=== PATIENT | female | born 1955 | race Caucasian/White ===

== ENCOUNTER 2017-04-09 06:33 | Outpatient (CLI) | payer MEDICARE ==
[~2017-04-09] VITALS: Ht 168.9 cm; Wt 89.8 kg
[2017-04-09] VITALS (10 sets, daily range): BP systolic 90–115; BP diastolic 56–74
[~2017-04-09 06:33] MED LIST: ALPR0.5T6 PO; AMIT150T PO; AMIT50TA PO; ATEN50TA PO; ATORVASTATIN CA80 MG PO; CLOP75TA PO; FLUT16SP NS; LEVO175T5 PO; MELA3TAB2 PO; OMEP20CA9 PO; OMEP40CA5 PO; OXYC1TAB7 PO; PRED-220 PO; VENL150C PO; ZOLP10TA PO
[2017-04-09 07:25] LABS: BASO # 0.1 x10^3/uL (0.0-0.2); BASO % 1 % (0-3); EOS % 1 % (0-3); HEMATOCRIT 37.5 % (36.0-47.0); HEMOGLOBIN 12.2 g/dL (12.0-15.5); LYMPH # 3.3 x10^3/uL (1.0-4.8); LYMPH % 27 % (24-48); MEAN CORPUSCULAR HEMOGLOBIN 31 pg (25-35); MEAN CORPUSCULAR HGB CONC 32 g/dL (31-37); MEAN CORPUSCULAR VOLUME 96 fL (79-100); MONO % 10 % (0-9); NEUT % 61 % (31-73); PLATELET COUNT 340 x10^3/uL (140-400); RED BLOOD COUNT 3.92 x10^6/uL (3.50-5.40); RED CELL DISTRIBUTION WIDTH 14.3 % (11.5-14.5); WHITE BLOOD COUNT 12.2 x10^3/uL (4.0-11.0)
[2017-04-09 07:34] LABS: PROTHROMBIN TIME PATIENT 12.1 SEC (11.7-14.0)
[2017-04-09 07:36] LABS: CALCIUM 8.8 mg/dL (8.5-10.1); CREATININE 0.9 mg/dL (0.6-1.0); GFR 63.2; POTASSIUM 3.6 mmol/L (3.5-5.1)
[2017-04-09] MEDS ORDERED: IOHEXOL 300 MG/ML 50 ML VIAL. ONE (08:08)
[2017-04-09] MEDS ORDERED: HEPARIN for ARTERIAL LINE 1,500 ML ONE (08:09)
[2017-04-09] MEDS ORDERED: LIDOCAINE 1% / SOD BICARB 8.4% 20 ML VIAL. IJ ONE ×2 (08:09→09:00)
[2017-04-09] MEDS ORDERED: IOHEXOL 300 MG/ML 100ML VIAL. ONE (08:09)
[2017-04-09] MEDS ORDERED: MIDAZOLAM HCL/PF 5 MG/5 ML VIAL. ONE (08:44)
[2017-04-09] MEDS ORDERED: fentaNYL PF VIAL 250 MCG/5 ML VIAL ONE (08:44)
[2017-04-09] MEDS ORDERED: fentaNYL PF VIAL 250 MCG/5 ML VIAL IV ONE (09:00)
[2017-04-09] MEDS ORDERED: IOHEXOL 300 MG/ML 100ML VIAL. IART ONE (09:00)
[2017-04-09] MEDS ORDERED: MIDAZOLAM HCL/PF 5 MG/5 ML VIAL. IV ONE (09:00)
[2017-04-09] MEDS ORDERED: HEPARIN for IV BOLUS 10,000 UNIT/10 ML VIAL. ONE (09:06)
[2017-04-09] MEDS ORDERED: CONTRAST GIVEN MC PRN (09:15)
[2017-04-09] MEDS ORDERED: HEPARIN for IV BOLUS 10,000 UNIT/10 ML VIAL. IV ONE (09:15)
[2017-04-09] MEDS ORDERED: IV NORMAL SALINE 1000ML BAG 1,000 ML IV ONE (10:00)
--- NOTE | 2017-04-09 10:28 | PDOC ---
MODERATE SEDATION ASSESSMENT RISKS/ALTERNATIVES Risks/Alternatives Risks and alternatives of this type of sedation and procedure discussed with: RISK/ALTERNATIVES: Patient H & P ON CHART H & P H & P on chart and reviewed for co-morbid conditions and appropriate labs. H&P ON CHART: Yes STATUS PREG STATUS ASSESSED: N/A MEDS/ALLERGIES REVIEWED Meds/Allergies Reviewed Medications and Allergies including time and route of recently administered narcotics and sedatives. MEDS/ALLERGIES REVIEWED: Yes ASA RATING ASA RATING: II AIRWAY ASSESSMENT Airway Assessment Airway patency, oral function limitations, presence of caps, crowns, dentures, partials, and ability to extend neck assessed. AIRWAY ASSESSMENT: Yes MALLAMPATI SCORE MALLAMPATI SCORE: II PRE-SEDATION ASSESSMENT PRE-SEDATION ASSESSMENT: Yes GIDEON CONTE MD Apr 09, 2017 10:28
--- NOTE | 2017-04-09 10:42 | PDOC1 ---
History and Physical Date of Procedure Date of Admission 04/09/17 Procedure Procedure Selective bilateral cervicocephalic angio +/- PROGRAMMING EQUIPMENT OPERATOR, as indicated. Indication Indication 61 YO female with known cerebrovascular disease, s/p brachiocephalic artery stenting, left subclavian artery stenting, left subclavian -CCA bypass, and left CEA. She has had several prior PTAs for recurrent stenosis. She represents with syncope, weakness, and diminished radial pulses, c/w recurrent restenosis. Past Medical History Past Medical History See Nursing Pre procedure PMH Past Surgical History Past Surgical History See Nursing Pre procedure PSH. Current Medications Current Medications Current Medications Iohexol (Omnipaque 300 Mg/ml) 50 ml STK-MED ONCE .ROUTE ; Start 04/09/17 at 08: 08; Stop 04/09/17 at 08:09; Status DC Iohexol (Omnipaque 300 Mg/ml) 100 ml STK-MED ONCE .ROUTE ; Start 04/09/17 at 08: 09; Stop 04/09/17 at 08:10; Status DC Lidocaine/Sodium Bicarbonate (Buffered Lidocaine 1%) 20 ml STK-MED ONCE IJ ; Start 04/09/17 at 08:09; Stop 04/09/17 at 08:10; Status DC Heparin Sodium/ Sodium Chloride 1,500 ml @ As Directed STK-MED ONCE .ROUTE ; Start 04/09/17 at 08:09; Stop 04/09/17 at 08:10; Status DC Midazolam HCl (Versed) 5 mg STK-MED ONCE .ROUTE ; Start 04/09/17 at 08:44; Stop 04/09/17 at 08:45; Status DC Fentanyl Citrate (Fentanyl 5ml Vial) 250 mcg STK-MED ONCE .ROUTE ; Start at 08:44; Stop 04/09/17 at 08:45; Status DC Heparin Sodium/ Sodium Chloride 1,000 unit 1X ONCE IART Last administered on 09:54; Start 04/09/17 at 09:00; Stop 04/09/17 at 09:04; Status DC Lidocaine/Sodium Bicarbonate (Buffered Lidocaine 1%) 20 ml 1X ONCE IJ Last administered on 04/09/17 09:55; Start 04/09/17 at 09:00; Stop 04/09/17 at 09:04 ; Status DC Midazolam HCl (Versed) 5 mg 1X ONCE IV Last administered on 04/09/17 09:55; Start 04/09/17 at 09:00; Stop 04/09/17 at 09:04; Status DC Fentanyl Citrate (Fentanyl 5ml Vial) 250 mcg 1X ONCE IV Last administered on 09:57; Start 04/09/17 at 09:00; Stop 04/09/17 at 09:04; Status DC Iohexol (Omnipaque 300 Mg/ml) 100 ml 1X ONCE IART Last administered on 09:54; Start 04/09/17 at 09:00; Stop 04/09/17 at 09:04; Status DC Info (Do NOT chart on this entry -- for MONITORING) 1 each PRN DAILY PRN MC SEE COMMENTS; Start 04/09/17 at 09:15; Stop 04/11/17 at 09:14 Heparin Sodium (Porcine) (Heparin Sodium) 10,000 unit STK-MED ONCE .ROUTE ; Start 04/09/17 at 09:06; Stop 04/09/17 at 09:07; Status DC Heparin Sodium (Porcine) (Heparin Sodium) 10,000 unit 1X ONCE IV Last administered on 04/09/17 09:56; Start 04/09/17 at 09:15; Stop 04/09/17 at 09:22 ; Status DC Sodium Chloride 1,000 ml @ 100 mls/hr 1X ONCE IV Last administered on 08:45; Start 04/09/17 at 10:00; Stop 04/09/17 at 19:59 Active Scripts Active Reported Amitriptyline Hcl 150 Mg Tablet 250 Mg PO DAILY Ambien (Zolpidem Tartrate) 10 Mg Tablet 1 Tab PO QHS PRN Atorvastatin Calcium 80 Mg Tablet 1 Tab PO HS Omeprazole 20 Mg Capsule.dr 2 Cap PO DAILY Atenolol 50 Mg Tablet 1 Tab PO DAILY Oxycodone-Acetaminophen 5-325 (Oxycodone Hcl/Acetaminophen) 1 Each Tablet 2 Each PO PRN Q4HRS PRN Fluticasone Propionate Nasal [place] (Fluticasone Propionate) 16 Gm [place].susp 2 [place] NS PRN PRN Alprazolam 0.5 Mg Tablet 1 Tab PO TID PRN Clopidogrel (Clopidogrel Bisulfate) 75 Mg Tablet 1 Tab PO DAILY Prednisone 10 Mg Tablet 10 Mg PO PRN Effexor Xr (Venlafaxine Hcl) 150 Mg Cap.er.24h 1 Cap PO DAILY Levothyroxine Sodium 175 Mcg Tablet 1 Tab PO DAILY Allergies Allergies: Coded Allergies: cortisone (Verified Allergy, Intermediate, 10/14/16) sumatriptan (Verified Allergy, Intermediate, 10/14/16) Physical Exam Vital Signs Vital Signs Date Time Temp Pulse Resp B/P (MAP) Pulse Ox O2 Delivery O2 Flow Rate FiO2 04/09/17 10:15 84 16 93 Room Air 04/09/17 09:57 3.0 04/09/17 07:31 98.2 110/74 (86) 98.2 Lungs: Clear to auscultation Heart: Regular rate Psych/Mental Status: Mental status NL Other Diminished radial artery pulses bilaterally. Diagnostic Data/Imaging Images Several prior PMC cervicocephalic angios with intervention reviewed, latest from 09/14/16. Assessment Assessment 61 YO female smoker, with known cerebrovascular disease. She has recurrent syncope, weakness, and diminished radial pulses c/w recurrent cervicocephalic stenoses. Problems: Plan Plan Selective cervicocephalic angio, +/- intervention, as indicated. GIDEON CONTE MD Apr 09, 2017 10:42
--- NOTE | 2017-04-09 10:50 | PDOC ---
Exam Supervisory Examiner Supervisory Examiner Gianni Histology Tech Histology Tech Jailyn Lopez Pre-Procedure Diagnosis Pre-Procedure Diagnosis 61 YO female smoker, with weakness, syncope, and diminished radial pulses, c/w in-stent restenosis within brachiocephalic and left subclavian artery stents. Post-Procedure Diagnosis Post-Procedure Diagnosis Same. Cervicocephalic angio confirmed >50 % recurrent stenosis within brachiocephalic artery stent, within left subclavian artery stent, and within left subclavian- CCA bypass. Left carotid bifurcation remains widely patent, s/p CEA. Moderate, approximately 50 % stenosis at right carotid bifurcation. Procedure Performed Procedure Performed Selective cervicocephalic angio. OUTSIDE MEDICAL SALES REPRESENTATIVE recurrent stenoses within brachiocephalic artery stent, left subclavian artery stent, and within left subclavian-CCA bypass. Type of Anesthesia Type of Anesthesia Local + Mod sedation. Estimated Blood Loss EBL: 50 cc Condition of Patient Condition of Patient Stable. No apparent complication. Disposition Disposition From IR to [facility] for recovery, with frequent neuro checks. Will need ride home or will need to stay overnight. Continue daily PO Plavix. Stop smoking. F/u with Dr Weiss. Full report to follow. GIDEON CONTE MD Apr 09, 2017 10:50
[2017-04-09] MEDS ORDERED: oxyCODONE/APAP 5/325 1 TAB TABLET PO ONE (11:45)
--- NOTE | 2017-04-10 12:15 | RAD ---
Selective bilateral cervicocephalic arteriogram HEAD STOCK OPERATOR proximal brachiocephalic artery stent HEAD STOCK OPERATOR left subclavian-carotid bypass graft HEAD STOCK OPERATOR proximal left subclavian artery stent Indication: 61-year-old female with known cerebrovascular disease, status post prior brachiocephalic artery and left subclavian artery stenting, left subclavian-common carotid bypass graft, and left carotid endarterectomy. She has known right carotid bifurcation disease, followed by ultrasound. She now represents with syncope, weakness, and diminished bilateral radial pulses, suggesting recurrent brachiocephalic and proximal left subclavian artery in-stent restenosis. Artery selected/injected: Brachiocephalic artery; Right brachial artery; Right common carotid artery; Left subclavian artery; Left vertebral artery; Left subclavian-carotid bypass graft; Left common carotid artery. Fluoroscopy time: 21.8 minutes Kerma-area Product: 291 Gycm2 Contrast material: 103 cc Omnipaque 300 Anesthesia: 69 minutes moderate sedation was provided utilizing a total of 4 mg Versed and 200 mcg fentanyl, IV. The patient was appropriately monitored by a qualified independent observer throughout the time of moderate sedation. Consent: The procedure was explained in its entirety to the patient and/or the patient's designated advertising sales representative by a member of the treatment team. This included a discussion of risks and benefits and commonly accepted alternatives to the procedure, as well as expected consequences of no treatment at all. Discussion of risks included, but was not limited to, those that are most frequent and those that are rare, but possibly severe or life-threatening, as well as the possibility of unforeseen complications. Sterility: All elements of maximal sterile barrier technique, hand hygiene, skin preparation, and, if ultrasound was used, sterile ultrasound technique were followed. Procedure: Informed consent was obtained from the patient. She was placed supine on the angiography table. Preliminary ultrasound examination of right groin revealed wide patency of right common femoral artery, which was documented with a single hard copy ultrasound image. Right groin was then prepped and draped in the usual sterile fashion, utilizing all elements of maximal sterile barrier technique, as described above. Moderate sedation was provided with IV Versed and fentanyl. Using aseptic technique, local anesthesia, direct ultrasound guidance, and the micropuncture system, a 7 Iraqi 55 cm right common femoral artery sheath was successfully introduced, and was advanced into distal aortic arch, utilizing fluoroscopic guidance. Right side: A 5 Iraqi H1 catheter was inserted through the 7 Iraqi sheath, and was carefully advanced across the previously stented brachiocephalic artery into mid right common carotid artery. Omnipaque 300 was hand injected and right carotid cervical and intracranial DSA images were obtained. Those images revealed widely patent right common carotid artery, widely patent right external carotid artery, and essentially unchanged, less than 50% stenosis at proximal right internal carotid artery. Cervical right ICA is otherwise unremarkable, as are petrous, cavernous, and supraclinoid segments. There was prompt and satisfactory contrast opacification of right middle and bilateral anterior cerebral arteries, via patent anterior communicating artery. There was no evidence of intracranial major vessel occlusion, aneurysm, or vascular malformation. The H1 catheter was then withdrawn into brachiocephalic artery, and was then carefully advanced over a Glidewire across right subclavian artery and axillary artery into proximal right brachial artery. Omnipaque 300 was then injected through the H1 catheter, confirming satisfactory intraluminal position within proximal brachial artery. The H1 catheter was then removed over a long Terumo advantage guidewire, positioned with its tip within mid right brachial artery. A 6 Iraqi 100 cm long guiding catheter was then advanced through the 7 Iraqi sheath over the advantage wire and was positioned at origin of brachiocephalic artery from aortic arch. Omnipaque 300 was injected through the guide catheter, confirming at least 50% in-stent restenosis within the proximal brachiocephalic artery stent. IV bolus injection of 5000 units heparin was then performed. The guiding catheter was then exchanged over the advantage guidewire for a 10 mm x 20 mm conquest HEAD STOCK OPERATOR balloon, which was carefully positioned across the brachiocephalic artery stent, and was slowly inflated to a peak pressure of 20 bev. The conquest HEAD STOCK OPERATOR balloon was then re-exchanged over the advantage wire for the 6 Iraqi guiding catheter, which was again positioned near brachiocephalic artery origin. Omnipaque 300 was again injected and post angioplasty DSA images were obtained, which revealed essentially complete resolution of the in-stent restenosis, without complicating dissection or thrombosis. Left side: The 5 Iraqi H1 catheter was then reintroduced through the 7 Iraqi sheath. This catheter was carefully advanced over a Glidewire through the previously stented proximal left subclavian artery into mid left vertebral artery, utilizing fluoroscopic guidance. Omnipaque 300 was injected and intracranial DSA images were obtained in AP and lateral projections. Left vertebral artery and basilar artery are widely patent, with normal antegrade flow. Posterior cerebral arteries are well opacified, bilaterally. No aneurysm or vascular malformation was seen. The H1 catheter was then withdrawn into left subclavian artery, and was then carefully advanced over the Glidewire into and through the patient's left subclavian-common carotid bypass graft into left common carotid artery. Omnipaque 300 was again injected and carotid cervical and intracranial DSA images were obtained. Postoperative distal left common carotid artery and left carotid bifurcation appear widely patent. Petrous, cavernous, and supraclinoid left ICA are unremarkable. There is prompt contrast opacification of left middle and anterior cerebral arteries, without major vessel occlusion and without aneurysm or vascular malformation. The H1 catheter was then withdrawn into origin of the left subclavian-common carotid bypass graft. Omnipaque 300 was hand injected, confirming moderate restenosis within proximal segment of the bypass graft. The H1 catheter was then carefully reintroduced into left common carotid artery over the Glidewire, and was then removed over an Amplatz wire. A 6 mm x 40 mm conquest HEAD STOCK OPERATOR balloon was then advanced through the 7 Iraqi sheath over the Amplatz wire and was utilized to perform balloon dilatation of the narrowed proximal bypass graft segment to a peak pressure of 15 bev. Post angioplasty DSA images revealed significant angiographic improvement, without complicating dissection or thrombosis. The 5 Iraqi H1 catheter was then reintroduced through the 7 Iraqi sheath, and was utilized to carefully advanced the Amplatz wire into mid left axillary artery. The H1 catheter was then exchanged for the 6 Iraqi guiding catheter, which was advanced over the Amplatz wire to lie adjacent to left subclavian artery origin. Omnipaque 300 was injected, confirming at least 50% residual stenosis within the previously stented proximal left subclavian artery. The guiding catheter was then exchanged over the Amplatz wire for an 8 mm x 40 mm conquest HEAD STOCK OPERATOR balloon, which was carefully positioned across the proximal left subclavian artery stent, and was slowly inflated to a peak pressure of 24 bev. The HEAD STOCK OPERATOR balloon was then deflated and was re-exchanged for the 6 Iraqi guiding catheter, which was again advanced over the Amplatz wire to lie adjacent to left subclavian artery origin. Omnipaque 300 was injected and completion DSA images were obtained, which revealed only minimal residual stenosis within the proximal left subclavian artery stent. Those images also again confirmed widely patency of the angioplastied left subclavian-carotid bypass graft. Guidewire, guiding catheter, and right groin sheath were then removed and hemostasis was achieved utilizing the Mynx closure system. Patient tolerated the procedure well without apparent complication. Impression: 1. Successful, uneventful bilateral multivessel selective cervicocephalic arteriogram, as described. 2. Successful, uneventful balloon angioplasty of proximal brachiocephalic artery stent, proximal left subclavian artery stent, and left subclavian-carotid bypass graft, as described.
== END 2017-04-09 13:15 | disposition home or self-care (01) ==
LOC: INTRAD 06:33
PROVIDERS: ATTEND Radiology Vascular & Interventional Radiology
DX: I25.10 Atherosclerotic heart disease of native coronary artery without angina pectoris (principal); I73.9 Peripheral vascular disease, unspecified; Z86.69 Personal history of other diseases of the nervous system and sense organs; E78.00 Pure hypercholesterolemia, unspecified; J44.9 Chronic obstructive pulmonary disease, unspecified; M19.90 Unspecified osteoarthritis, unspecified site; E03.9 Hypothyroidism, unspecified; Z72.0 Tobacco use; D64.9 Anemia, unspecified; Z87.39 Personal history of other diseases of the musculoskeletal system and connective tissue; Z90.710 Acquired absence of both cervix and uterus; Z88.8 Allergy status to other drugs, medicaments and biological substances; Z86.39 Personal history of other endocrine, nutritional and metabolic disease
CPT/HCPCS: 36223; 36226; 36415; 37246; 37247; 76937; 80048; 85027; 85610; 99152; 99153; A4215; C1713; C1758; C1760; C1769; C1892; C1894; J2250; J3010; J7030; Q9967; G0269

== ENCOUNTER → 2018-07-11 | Outpatient (CLI) | payer MEDICARE ==
[2017-04-09 13:00] VITALS: BP 96/71
--- NOTE | 2018-07-12 02:39 | PAIN ---
DATE OF SERVICE: 07/11/2018 DIAGNOSES: Lumbar spinal stenosis, lumbar degenerative disk disease with lumbar radiculopathy, and post-lumbar laminectomy syndrome. HISTORY OF PRESENT ILLNESS: The patient is a 62-year-old female, returns today, last seen on 12/19/2015, had lumbar epidural steroid injection with very good results about 80% improvement until the last 1-2 months. The patient reports she had been doing some increased work at home, moving some things around her home, which has caused her back pain to increase across the low back and bilateral lower extremities, mostly the posterior gluteus, posterior thighs, but across the low back most significantly. The patient reports it as a 9 on a scale of 10 at its worst, average and at its least, it is a 9 on a scale of 10 today. The patient reports it is aching, burning, tingling, stabbing, sharp, and becoming more constant. No loss of motor function. No new bowel or bladder incontinence or other complaints. The patient reports that it allows her to sleep at night. She is not having any difficulty with sleeping. It is worse with standing, walking, changing positions, standing from sitting position and being on her feet, especially with bending repetitively and lifting items. PHYSICAL EXAMINATION: VITAL SIGNS: The patient's blood pressure is 142/93, pulse 107, respirations are 18, temperature 98.0 degrees Fahrenheit, height is 5 feet 6 inches, weight is 245 pounds. GENERAL: The patient is awake, alert, oriented, appropriate, very pleasant demeanor. HEENT: Head is normocephalic, atraumatic. Extraocular movements are intact, symmetrical. Oral cavity: Mucous membranes are moist and pink. Dentition is intact. Swallow reflex symmetrical. NECK: Shows anterior throat supple without palpable lymphadenopathy noted. CHEST: Shows normal on inspection. Breath sounds clear to auscultation bilaterally. HEART: Shows S1, S2 clear. No murmurs auscultated. ABDOMEN: Soft, nontender, nondistended. No palpable organomegaly is noted. No rebound or guarding demonstrated. BACK: Shows spine grossly in the midline. Normal appearing thoracic kyphosis, some minor flattening of lumbar lordotic curvature with well-healed surgical scar noted in the lumbar distribution. Lumbar paraspinous muscle shows symmetrical on inspection. On palpation, it shows some moderate tenderness diffusely bilaterally, but only in the low lumbar distribution without radiation. The patient has good rotational motion of lumbar spine, both laterally, as well as extension and flexion without difficulty. EXTREMITIES: Lower extremities show deep tendon reflexes 1+ in the patellar and tendo-calcaneus tendons. Motor exam is strong with 5/5 dorsiflexion, extension, quadriceps and hamstring flexion, symmetrical. Peripheral pulses are 1+, posterior tibia. No peripheral edema is noted bilaterally. ASSESSMENT: Options were discussed with the patient. The patient's old chart was reviewed. Her current medication regimen updated. Current review of systems updated today as well. We will check with her prescribing physician for holding her Plavix for 7 days prior to lumbar epidural steroid injection. If deemed safe and appropriate, we will have the patient hold this and return for lumbar epidural steroid injection at that time. At this time, the patient will continue taking medication until we hear back from her prescribing physician and we will go from there. The patient also given the Medrol Dosepak with instructions, side effects to be aware of discussed and we will try this in the meantime to see if this may afford some decrease in pain in the meantime. YU RODRIGUEZ MD DR: JOSEFINA/jason JOB#: [id number] / [id number]
== END | disposition home or self-care (01) ==
LOC: PNCL 13:30
PROVIDERS: ATTEND Anesthesiology
DX: M51.16 Intervertebral disc disorders with radiculopathy, lumbar region (principal); M48.061 Spinal stenosis, lumbar region without neurogenic claudication; M17.0 Bilateral primary osteoarthritis of knee; I10 Essential (primary) hypertension; E78.5 Hyperlipidemia, unspecified; E78.00 Pure hypercholesterolemia, unspecified; E03.9 Hypothyroidism, unspecified; J44.9 Chronic obstructive pulmonary disease, unspecified; G43.909 Migraine, unspecified, not intractable, without status migrainosus; I25.10 Atherosclerotic heart disease of native coronary artery without angina pectoris; K21.9 Gastro-esophageal reflux disease without esophagitis; Z86.39 Personal history of other endocrine, nutritional and metabolic disease; Z87.39 Personal history of other diseases of the musculoskeletal system and connective tissue; Z86.69 Personal history of other diseases of the nervous system and sense organs; Z90.721 Acquired absence of ovaries, unilateral; Z90.710 Acquired absence of both cervix and uterus; Z82.49 Family history of ischemic heart disease and other diseases of the circulatory system
CPT/HCPCS: G0463

== ENCOUNTER → 2018-08-15 | Outpatient (CLI) | payer MEDICARE ==
[2017-04-09 13:00] VITALS: BP 96/71
[~2018-08-15] MED LIST changes: +IOHEXOL 180 MG/ML 10 ML VIAL. ONE; +LIDOCAINE 2% PF Vial for OR 5 ML VIAL. ONE
--- NOTE | 2018-08-16 03:33 | PAIN ---
DATE OF SERVICE: 08/15/2018 PROGRESS NOTE FOR PAIN CLINIC DIAGNOSES: Bilateral knee joint pain with bilateral osteoarthritis of the bilateral knee joints. HISTORY OF PRESENT ILLNESS: The patient is a 63-year-old female who returns for followup status post evaluation and preauthorization or ordering Synvisc injections for bilateral knee joints. The patient reports still significant pain with walking, standing, especially climbing stairs, putting weight on one knee or the other, one leg at a time with significant pain mostly in the medial compartment, a little worse on the left than the right, but present bilaterally. The patient reports it is constant, unbearable, aching, sharp, shooting at times in the left knee greater than the right, also some back pain as well. The patient reports as a 9 on a scale of 10 at its worst, average and least and is a 9 today. The patient reports it is becoming more constant, more unbearable with weightbearing, better with sitting and lying down, does awaken her from sleep though if she lies on her side mostly on the left or has her knee bent too far. The patient reports no new motor or sensory deficits, no new bowel or bladder incontinence or other complaints. PHYSICAL EXAMINATION: VITAL SIGNS: The patient's blood pressure is 137/84, pulse 74, respirations 16, temperature is 97.8 degrees Fahrenheit, 5 feet 6 inches and weight is 246 pounds. GENERAL: The patient is awake, alert, oriented, appropriate, very pleasant demeanor. HEENT: Head shows normocephalic and atraumatic. Extraocular movements are intact and symmetrical. Oral cavity: Mucous membranes are moist and pink. Dentition is intact. NECK: Shows anterior throat is supple without palpable lymphadenopathy noted. Swallow reflex is symmetrical. CHEST: Shows normal on inspection. Breath sounds are clear to auscultation bilaterally. HEART: Shows S1 and S2 clear. No murmurs are auscultated. ABDOMEN: Obese, soft, nontender and nondistended. No palpable organomegaly is noted. No rebound or guarding demonstrated. BACK: The patient's back shows spine grossly in the midline, slight exaggeration of thoracic kyphosis and some mild flattening of lumbar lordotic curvature. EXTREMITIES: The patient's lower extremities show deep tendon reflexes 1+ in the patellar and tendo-calcaneus tendons. Motor exam is strong with 5/5 dorsiflexion and extension bilaterally. The patient's knee shows good hinge motion with smooth gliding of the joint on the right. Left shows some mild ratcheting with full extension and flexion, but only with very minimal pain reported with this maneuver. Peripheral pulses are 1+ posterior tibia. No peripheral edema is noted bilaterally. Options were discussed with the patient. The patient's old chart was reviewed as was her current medication regimen updated. Current review of systems updated today as well. We will proceed with bilateral Synvisc injections of the knee joints under fluoroscopic guidance. Risks were again discussed including, but not limited to bleeding, infection, possibility of intravascular injection sequelae, spread of local anesthetic and numbness as well as exposure to fluoroscopy and poor results regarding pain control. The patient understands and wished to proceed. The patient will return to the clinic in approximately 2 weeks for followup, was counseled as to return appointment, activity level and side effects to be aware of. DIAGNOSIS: Bilateral primary osteoarthritis, bilateral knee joints with bilateral knee joint pain. PROCEDURE: Bilateral knee joint Synvisc injections using C-arm fluoroscopic guidance under sterile prep and drape using local anesthetic. MEDICATIONS INJECTED: A total of 2 mL per knee, 4 mL total of Synvisc as well as 3 mL total of Isovue for contrast. CONDITION AT DISCHARGE: Stable. The patient tolerated the procedure well and had no complications. YU RODRIGUEZ MD DR: JOSEFINA/jason JOB#: [id number] / [id number]
== END | disposition home or self-care (01) ==
LOC: PNCL 11:36
PROVIDERS: ATTEND Anesthesiology
DX: M17.0 Bilateral primary osteoarthritis of knee (principal); Z88.6 Allergy status to analgesic agent; Z88.8 Allergy status to other drugs, medicaments and biological substances
CPT/HCPCS: 20610; 77002; J2001; Q9965

== ENCOUNTER → 2018-08-22 | Outpatient (CLI) | payer MEDICARE ==
[2017-04-09 13:00] VITALS: BP 96/71
[~2018-08-22] MED LIST changes: -LIDOCAINE 2% PF Vial for OR 5 ML VIAL. ONE
--- NOTE | 2018-08-22 23:05 | PAIN ---
DATE OF SERVICE: 08/22/2018 PROGRESS NOTE FOR PAIN CLINIC DIAGNOSIS: Bilateral knee joint pain with primary osteoarthritis, bilateral knees. HISTORY OF PRESENT ILLNESS: The patient is a 63-year-old female who returns for followup status post bilateral Synvisc injections in each knee. The patient reports good results with decrease in pain about 30% or so in the bilateral knees since her last injection, which was 1 week ago today. The patient reports doing well, better ability to stand on her feet for a bit longer period of time, better ability to climb stairs with less pain but still significant pain in the knees themselves bilaterally. The patient reports a burning and aching, rates it is a 6 on a scale of 10 at its worst, is average and at its least and is a 6 today. The patient reports no new motor or sensory deficits or other complaints. She is pleased with her progress thus far but reports it awakens her from sleep occasionally but usually she has been sleeping little bit better at night since her last injection. The patient reports no new motor or sensory deficits and no new changes. PHYSICAL EXAMINATION: VITAL SIGNS: Today, the patient's blood pressure is 115/80, pulse 103, respirations 18 and temperature 97.7 degrees Fahrenheit. Height is 5 feet 6 inches and weight is 245 pounds. GENERAL: The patient is awake, alert, oriented, appropriate and very pleasant demeanor. HEENT: Head is normocephalic and atraumatic. Extraocular movements are intact and symmetrical. Oral cavity, mucous membranes are moist and pink. Dentition is intact. NECK: Shows anterior throat supple without palpable lymphadenopathy noted. Swallow reflex is symmetrical. CHEST: Shows normal on inspection. Breath sounds clear to auscultation bilaterally. HEART: Shows S1 and S2 clear. No murmurs auscultated. ABDOMEN: Soft, nontender and nondistended. No palpable organomegaly is noted. No rebound or guarding demonstrated. BACK: Shows spine grossly in the midline. Normal appearing thoracic kyphosis and lumbar lordotic curvature. Lumbar paraspinous muscle shows symmetrical on inspection, on palpation shows some moderate tenderness but only diffusely without radiation. EXTREMITIES: The patient's lower extremities show deep tendon reflexes at 1+ in the patellar and tendo-calcaneus tendons. Motor exam is strong with 5/5 dorsiflexion and extension. The patient's knees show no significant tenderness with palpation over the patella and with good range of motion without ratcheting and with smooth joint hinge motion. Peripheral pulses are 1+ posterior tibia. No peripheral edema is noted bilaterally. Options were discussed with the patient. The patient's old chart was reviewed as well as her current medication regimen updated. Current review of systems updated today as well. We will proceed with bilateral Synvisc injection, is the second injection in this series today with fluoroscopic guidance. Risks were again discussed including, but not limited to bleeding, infection, possibility of intravascular injection sequelae, spread of local anesthetic and numbness, exposure to fluoroscopy as well as poor results regarding pain control. The patient understands and wished to proceed. The patient will return to the clinic in approximately 1 week. We will plan on third Synvisc injection at that time. The patient was counseled as to activity level as well as side effects to be aware of. DIAGNOSIS: Primary osteoarthritis, bilateral knee joints with bilateral knee joint pain. PROCEDURES: Bilateral Synvisc joint injections using C-arm fluoroscopic guidance under sterile prep and drape using local anesthetic. MEDICATION INJECTED: A total of 4 mL of Synvisc, 2 mL per knee and total of 2 mL, 1 mL per knee of Isovue for contrast. CONDITION AT CONDITION AT DISCHARGE: Stable. The patient tolerated the procedure well and had no complications. YU RODRIGUEZ MD DR: JOSEFINA/jason JOB#: [id number] / [id number]
== END | disposition home or self-care (01) ==
LOC: PNCL 11:42
PROVIDERS: ATTEND Anesthesiology
DX: M17.0 Bilateral primary osteoarthritis of knee (principal); Z88.6 Allergy status to analgesic agent; Z88.8 Allergy status to other drugs, medicaments and biological substances
CPT/HCPCS: 20610; 77002; Q9965

== ENCOUNTER → 2018-08-29 | Outpatient (CLI) | payer MEDICARE ==
[2017-04-09 13:00] VITALS: BP 96/71
[~2018-08-29] MED LIST changes: +HYLAN G-F 20 16 MG/2 ML SYRINGE. ONE
--- NOTE | 2018-08-29 13:45 | PAIN ---
DATE OF SERVICE: 08/29/2018 DIAGNOSES: Bilateral knee joint pain with primary osteoarthritis, bilateral knee joint. HISTORY OF PRESENT ILLNESS: The patient is a 63-year-old female who returns for followup status post Synvisc injections in each knee x 2, last seen one week ago. The patient reports she is doing better with each injection, about 50% improvement now, although the cold weather we had recently has caused some pain to flare up, especially on the left knee. The patient reports otherwise doing well. No new motor or sensory deficit, has been increasing her distance walking and did increase in activities at home, sleeping well at night. Reports the pain is 6 on a scale of 10 at its worst, average and at its least and is a 6 today. The patient reports it is burning, sharp, again the left knee worse than the right with weightbearing, standing, especially climbing stairs, which she is avoiding if possible. She is walking quite a bit with her dogs, taking them on walks daily and reports this is slightly easier now. The patient reports no new motor or sensory deficits, no new changes. PHYSICAL EXAMINATION: VITAL SIGNS: The patient's blood pressure 137/91, pulse is 94, respirations 16, temperature 98.1 degrees Fahrenheit, height is 5 feet 6 inches. GENERAL: The patient is awake, alert, oriented, appropriate, very pleasant demeanor. HEENT: Head is normocephalic and atraumatic. Extraocular movements are intact and symmetrical. Oral cavity: Mucous membranes moist and pink. Dentition is intact. NECK: Shows anterior throat supple without palpable lymphadenopathy noted. Swallow reflex symmetrical. CHEST: Shows normal on inspection. Breath sounds clear to auscultation bilaterally. HEART: Shows S1, S2 clear. No murmurs auscultated. ABDOMEN: Soft, nontender, nondistended. No palpable organomegaly is noted. No rebound or guarding demonstrated. BACK: Shows spine grossly in the midline. Normal appearing thoracic kyphosis with minor flattening of lumbar lordotic curvature. Lumbar paraspinous muscle shows symmetrical on inspection. On palpation shows some moderate tenderness bilaterally, but only diffusely. The patient's lower extremities show deep tendon reflexes 1+ in the patellar and tendo-calcaneus tendons. Motor exam is strong with 5/5 dorsiflexion and extension. The patient's knees shows significant tenderness, but only on the medial aspect with palpation on the medial component and with some minor pain on the medial aspect of the patella, more on the left than the right with medial and lateral displacement. The patient has good hinge motion, however, of the knees without ratcheting or popping with passive motion. Peripheral pulses are 1+ posterior tibia. No peripheral edema is noted. Options were discussed with the patient. The patient's old chart was reviewed, as her current medication regimen updated. Current review of systems updated today as well and we will proceed with bilateral Synvisc knee joint injections with fluoroscopic guidance today. Risks were again discussed including, but not limited to bleeding, infection, possibility of intravascular injection sequelae, spread of local anesthetic and numbness, spread of Synvisc and poor results regarding pain control as well as exposure to fluoroscopy. The patient understands and wished to proceed. The patient to return to clinic in approximately 2 weeks for followup, was counseled on return appointment, activity level and side effects to be aware of. DIAGNOSES: Primary osteoarthritis, bilateral knee joints with bilateral knee joint pain. PROCEDURE: Bilateral knee joint injections, Synvisc, with C-arm fluoroscopic guidance under sterile prep and drape using local anesthetic. MEDICATION INJECTED: A 2 mL of Synvisc per knees at 4 mL total and local anesthetic as well as 2 mL Isovue, 1 mL per knee for contrast. CONDITION AT DISCHARGE: Stable. The patient tolerated procedure well and had no complications. YU RODRIGUEZ MD DR: JOSEFINA/jason JOB#: [id number] / [id number]
== END | disposition home or self-care (01) ==
LOC: PNCL 11:04
PROVIDERS: ATTEND Anesthesiology
DX: M17.0 Bilateral primary osteoarthritis of knee (principal); Z88.6 Allergy status to analgesic agent; Z88.8 Allergy status to other drugs, medicaments and biological substances
CPT/HCPCS: 20610; 77002; Q9965; J7325

== ENCOUNTER → 2018-10-07 | Day surgery (SDC) | payer MEDICARE ==
[~2018-10-07] MED LIST changes: +HYDROmorphone 2 MG/ML VIAL IV PRN; -HYLAN G-F 20 16 MG/2 ML SYRINGE. ONE; -IOHEXOL 180 MG/ML 10 ML VIAL. ONE; +IV RINGERS,LACTATED 1000ML 1,000 ML IV SCH; +LIDOCAINE 1% PF 2 ML VIAL. ID PRN; +LIDOCAINE 1% PF 2 ML VIAL. ONE; +MORPHINE SULFATE 2 MG/ML VIAL. IV PRN; +ONDANSETRON PF 4 MG/2 ML VIAL. IV PRN; +PROCHLORPERAZINE 10 MG/2 ML VIAL. IV PRN; +PROPOFOL 20 ML IV ONE; +fentaNYL PF VIAL 100 MCG/2 ML VIAL IV PRN
--- NOTE | 2018-10-07 08:31 | PDOC2 ---
CONSULT Date of Consult Date of Consult DATE: 10/07/18 TIME: 08:26 Reason for Consult Reason for Consult: CRC screening History of Present Illness Reason for Visit: 63 yo female is seen for colorectal cancer screening. She reports a positive cologuard test recently. No melena and/or hematochezia is present. Weight and appetite are stable. Bowel habits are regular without diarrhea or constipation. Prior colon resectino is noted as well. She otherwise is without additional complaints. Past Medical History Cardiovascular: HTN, Syncope, Hyperlipidemia, Other Pulmonary: COPD CENTRAL NERVOUS SYSTEM: Migraine, Seizure, Other GI: GERD Heme/Onc: No pertinent hx Hepatobiliary: No pertinent hx Psych: Anxiety Musculoskeletal: Osteoarthritis Rheumatologic: No pertinent hx Infectious disease: No pertinent hx Renal/: No pertinent hx Endocrine: Hypothyroidism Past Surgical History Past Surgical History: Hernia Repair, Hysterectomy, Colon Resection, Other Family History Family History: Coronary Artery Disease, Other Social History 1 pack per day ALCOHOL: none Drugs: None Lives: with Family Current Medications Current Medications Current Medications Ondansetron HCl (Zofran) 4 mg PRN Q6HRS PRN IV NAUSEA/VOMITING; Start at 07:00; Stop 10/08/18 at 06:59 Fentanyl Citrate (Fentanyl 2ml Vial) 25 mcg PRN Q5MIN PRN IV MILD PAIN; Start 10/07/18 at 07:00; Stop 10/08/18 at 06:59 Fentanyl Citrate (Fentanyl 2ml Vial) 50 mcg PRN Q5MIN PRN IV MODERATE TO SEVERE PAIN; Start 10/07/18 at 07:00; Stop 10/08/18 at 06:59 Morphine Sulfate (Morphine Sulfate) 1 mg PRN Q10MIN PRN IV SEVERE PAIN; Start 10/07/18 at 07:00; Stop 10/08/18 at 06:59 Ringer's Solution 1,000 ml @ 30 mls/hr Q24H IV Last administered on at 07:36; Start 10/07/18 at 07:00; Stop 10/07/18 at 18:59 Lidocaine HCl (Xylocaine-Mpf 1% 2ml Vial) 2 ml PRN 1X PRN ID IV START; Start 10/07/18 at 07:00; Stop 10/08/18 at 06:59 Hydromorphone HCl (Dilaudid) 0.5 mg PRN Q10MIN PRN IV SEV PAIN, Second choice; Start 10/07/18 at 07:00; Stop 10/08/18 at 06:59 Prochlorperazine Edisylate (Compazine) 5 mg PACU PRN PRN IV NAUSEA, MRX1; Start 10/07/18 at 07:00; Stop 10/08/18 at 06:59 Propofol 40 ml @ As Directed STK-MED ONCE IV ; Start 10/07/18 at 08:20; Stop 10/07/18 at 08:21; Status DC Lidocaine HCl (Xylocaine-Mpf 1% 2ml Vial) 2 ml STK-MED ONCE .ROUTE ; Start at 08:20; Stop 10/07/18 at 08:21; Status DC Active Scripts Active Reported Amitriptyline Hcl 150 Mg Tablet 250 Mg PO DAILY Ambien (Zolpidem Tartrate) 10 Mg Tablet 1 Tab PO QHS PRN Atorvastatin Calcium 80 Mg Tablet 1 Tab PO HS Omeprazole 20 Mg Capsule.dr 2 Cap PO DAILY Atenolol 50 Mg Tablet 1 Tab PO DAILY Oxycodone-Acetaminophen 5-325 (Oxycodone Hcl/Acetaminophen) 1 Each Tablet 2 Each PO PRN Q4HRS PRN Fluticasone Propionate Nasal [place] (Fluticasone Propionate) 16 Gm [place].susp 2 [place] NS PRN PRN Alprazolam 0.5 Mg Tablet 1 Tab PO TID PRN Clopidogrel (Clopidogrel Bisulfate) 75 Mg Tablet 1 Tab PO DAILY Effexor Xr (Venlafaxine Hcl) 150 Mg Cap.er.24h 1 Cap PO DAILY Levothyroxine Sodium 175 Mcg Tablet 1 Tab PO DAILY Allergies Allergies: Coded Allergies: cortisone (Verified Allergy, Intermediate, 10/07/18) sumatriptan (Verified Allergy, Intermediate, 10/07/18) Physical Exam General: Alert, Oriented X3 Lungs: Clear to auscultation Heart: Regular rate, Normal S1, Normal S2 Abdomen: Normal bowel sounds, Soft, No tenderness Assessment/Plan Assessment/Plan Colorectal cancer screening- with + cologuard test, is recommended at this time. Risks and benefits discussed with the patient who is willing to proceed. JENNA AGUILAR MD Oct 07, 2018 08:31
[2018-10-07 09:10] VITALS: BP 111/57
== END ==
LOC: ENDOS 07:04
PROVIDERS: ATTEND Internal Medicine Gastroenterology
DX: K64.0 First degree hemorrhoids (principal); Z98.0 Intestinal bypass and anastomosis status
CPT/HCPCS: 45378; J2704

== ENCOUNTER → 2019-03-14 | Outpatient (CLI) | payer MEDICARE ==
[2018-10-07 09:10] VITALS: BP 111/57
[~2019-03-14] MED LIST changes: -HYDROmorphone 2 MG/ML VIAL IV PRN; +IOHEXOL 180 MG/ML 10 ML VIAL. ONE; -IV RINGERS,LACTATED 1000ML 1,000 ML IV SCH; -LIDOCAINE 1% PF 2 ML VIAL. ID PRN; -LIDOCAINE 1% PF 2 ML VIAL. ONE; -MORPHINE SULFATE 2 MG/ML VIAL. IV PRN; +OMEP20CA10 PO; -OMEP20CA9 PO; -ONDANSETRON PF 4 MG/2 ML VIAL. IV PRN; -PROCHLORPERAZINE 10 MG/2 ML VIAL. IV PRN; -PROPOFOL 20 ML IV ONE; -fentaNYL PF VIAL 100 MCG/2 ML VIAL IV PRN; +methylPREDNISolone ACETATE 40 MG/ML VIAL. ONE; +methylPREDNISolone ACETATE 80 MG/ML VIAL. ONE
--- NOTE | 2019-03-15 01:12 | PAIN ---
DATE OF SERVICE: 03/14/2019 PROGRESS NOTE FOR PAIN CLINIC DIAGNOSES: 1. Lumbar radiculopathy with lumbar degenerative disk disease, lumbar spinal stenosis and lumbar post-laminectomy syndrome. 2. Bilateral knee joint pain with primary osteoarthritis. HISTORY OF PRESENT ILLNESS: The patient is a 63-year-old female who returns for followup status post previous lumbar epidural steroid injection as well as knee joint injections, last seen 08/2019. The patient did very well with each of these with about 75% improvement with her low back, but again this was several years ago with her back has been treated. The patient reports her pain is returning now in the low back, into the bilateral lower extremities, somewhat worse on the right than the left but present bilaterally, worse with walking, standing, changing positions, describes as burning, sharp and shooting, becoming more constant and aching. The patient reports it is a 10 on a scale of 10 at average, is a 10 at its worst and a 5 at its least and is a 10 today. The patient reports no new motor or sensory deficits and no new bowel or bladder incontinence, worse with activity. She has been decreasing her distance walking because of the pain secondary to this. It does not awaken her from sleep generally but some nights it will. Her knees are also starting to hurt again, but her chief complaint is her low back and bilateral lower extremities, right greater than left. The patient reports no new motor or sensory deficits and no new bowel or bladder incontinence. Describes the pain as sharp, shooting and burning and becoming more constant. PHYSICAL EXAMINATION: VITAL SIGNS: The patient's blood pressure is 104/66, pulse 87, respirations 18 and temperature 98.0 degrees Fahrenheit. Height is 5 feet 6 inches and weight is 247 pounds. GENERAL: The patient is awake, alert, oriented, appropriate and very pleasant demeanor. HEENT: Head shows normocephalic and atraumatic. Extraocular movements are intact and symmetrical. Oral cavity: Mucous membranes moist and pink. Dentition is intact. NECK: Shows anterior throat supple without palpable lymphadenopathy noted. Swallow reflex is symmetrical. CHEST: Shows normal with inspection. Breath sounds clear to auscultation bilaterally. HEART: Shows S1 and S2 clear. No murmurs auscultated. ABDOMEN: Soft, nontender and nondistended. No palpable organomegaly is noted. No rebound or guarding demonstrated. BACK: Shows spine grossly in the midline. Normal appearing thoracic kyphosis and some flattening of lumbar lordotic curvature with well-healed surgical scar in the midline. Lumbar paraspinous muscle shows symmetrical on inspection, on palpation shows some moderate tenderness diffusely throughout the upper, middle and lower distribution of the paraspinous muscles but without radiation, without asymmetry. EXTREMITIES: The patient's lower extremities show deep tendon reflexes at 1+ in the patella and tendo-calcaneus tendon. Motor exam is strong with 5/5 dorsiflexion, extension and equal. Peripheral pulses are 1+ posterior tibia. No peripheral edema is noted. The patient is able to stand but has difficulty standing on her toes with loss of balance fairly significantly but walks with a slight shuffling gait and does appear to favor the right lower extremity, greater than her left but not using any assistive devices to ambulate. Options were discussed with the patient at this time. The patient's old chart was reviewed as well as her current medications regimen updated. Current review of systems updated today as well. We will proceed with a lumbar epidural steroid injection today with fluoroscopic guidance. Risks were discussed including but not limited to bleeding, infection, possibility of epidural hematoma and subsequent neurological compromise and dural puncture, headaches, spinal cord and/or nerve damage, side effects of steroid medication and poor results regarding pain control. The patient understands and wished to proceed. The patient will return to the clinic in approximately 2 weeks for followup, was counseled as to return appointment, activity level and side effects to be aware of. DIAGNOSES: Lumbar radiculopathy with lumbar degenerative disk disease and lumbar spinal stenosis and post-lumbar laminectomy syndrome. PROCEDURE: Lumbar epidural steroid injection, translaminar approach, L5-S1 level using C-arm fluoroscopic guidance under sterile prep and drape using local anesthetic. MEDICATION INJECTED: A total of 120 mg Depo-Medrol plus 10 mL of preservative-free normal saline and 2 mL of Isovue for contrast. CONDITION AT DISCHARGE: Stable. The patient tolerated the procedure well and had no complications. YU RODRIGUEZ MD DR: JOSEFINA/jason JOB#: [id number] / [id number]
== END ==
LOC: PNCL 11:07
PROVIDERS: ATTEND Anesthesiology
DX: M51.16 Intervertebral disc disorders with radiculopathy, lumbar region (principal); M48.061 Spinal stenosis, lumbar region without neurogenic claudication; M96.1 Postlaminectomy syndrome, not elsewhere classified; M54.5 Low back pain; M79.662 Pain in left lower leg; M79.661 Pain in right lower leg
CPT/HCPCS: 62323; J1030; J1040; Q9965

== ENCOUNTER → 2019-03-28 | Outpatient (CLI) | payer MEDICARE ==
[2018-10-07 09:10] VITALS: BP 111/57
--- NOTE | 2019-03-28 19:30 | PAIN ---
DATE OF SERVICE: 03/28/2019 PROGRESS NOTE FOR PAIN CLINIC DIAGNOSIS: Lumbar radiculopathy with lumbar degenerative disk disease, lumbar spinal stenosis and post-lumbar laminectomy syndrome. HISTORY OF PRESENT ILLNESS: The patient is a 63-year-old female who returns for followup status post lumbar epidural steroid injection x 1. The patient reports only minimal decrease in pain, still pain in the low back, bilateral lower extremities, mostly in the posterior gluteus, posterior thighs, somewhat worse on the right than the left, but present bilaterally. The patient reports it is worse with walking, standing and changing positions, also some in the mid upper back as well. The patient reports no new motor or sensory deficits, no new bowel or bladder incontinence. She rates her pain as an 8 on a scale of 10 at all times, worst, least and average and is an 8 today. The patient reports it is burning, sharp, constant, becoming worse with walking, standing and changing positions, better with lying down, but does awaken her from sleep at least once or twice at night. The patient reports no new motor or sensory deficits, no bowel or bladder incontinence. PHYSICAL EXAMINATION: VITAL SIGNS: The patient's blood pressure 110/73, pulse 93, respirations 18, temperature 98.2 degrees Fahrenheit. Height is 5 feet 6 inches, weight is 254 pounds. GENERAL: The patient is awake, alert, oriented, appropriate, very pleasant demeanor. HEENT: Shows normocephalic, atraumatic. Extraocular movements are intact and symmetrical. Oral cavity: Mucous membranes are moist and pink. Dentition is intact. NECK: Shows anterior throat supple without palpable lymphadenopathy noted. Swallow reflex is symmetrical. CHEST: Shows normal on inspection. Breath sounds are clear to auscultation bilaterally. HEART: Shows S1, S2 clear. No murmurs auscultated. ABDOMEN: Obese, soft, nontender, nondistended. BACK: Shows spine grossly in the midline. Slight exaggeration of thoracic kyphosis and some flattening of lumbar lordotic curvature with well-healed surgical scarring noted in the lumbar distribution in the midline. Lumbar paraspinous muscle shows symmetrical on inspection, on palpation shows some moderate tenderness diffusely bilaterally, but only diffusely without specific radiation. EXTREMITIES: The patient's lower extremities show deep tendon reflexes at 1+ in the patellar and tendo calcaneus tendons are equal. Motor exam is strong with 5/5 dorsiflexion, extension, quadriceps and hamstring flexion and symmetrical. Peripheral pulses are 1+. No peripheral edema is noted. Options were discussed with the patient. The patient's old chart was reviewed as her current medication regimen updated. Current review of systems updated today as well. We will proceed with a second in a series of lumbar epidural steroid injection today with fluoroscopic guidance. Risks were again discussed including, but not limited to bleeding, infection, possibility of epidural hematoma and subsequent neurological compromise, dural puncture, headaches, spinal cord and/or nerve damage, side effects of steroid medication and poor results regarding pain control. The patient understands and wished to proceed. The patient will return to the clinic in approximately 2 weeks for followup, was counseled as to return appointment, activity level and side effects to be aware of. DIAGNOSIS: Lumbar radiculopathy with lumbar spinal stenosis, lumbar degenerative disk disease and post-lumbar laminectomy syndrome. PROCEDURE: Lumbar epidural steroid injection, translaminar approach at L5-S1 level using C-arm fluoroscopic guidance under sterile prep and drape using local anesthetic. MEDICATION INJECTED: A total of 120 mg Depo-Medrol plus 10 mL of preservative-free normal saline and 2 mL of contrast. CONDITION AT DISCHARGE: Stable. The patient tolerated the procedure well, had no complications. YU RODRIGUEZ MD DR: JOSEFINA/jason JOB#: [id number] / [id number]
== END ==
LOC: PNCL 10:38
PROVIDERS: ATTEND Anesthesiology
DX: M51.16 Intervertebral disc disorders with radiculopathy, lumbar region (principal); M48.061 Spinal stenosis, lumbar region without neurogenic claudication; M96.1 Postlaminectomy syndrome, not elsewhere classified
CPT/HCPCS: 62323; J1030; J1040; Q9965

== ENCOUNTER → 2019-04-11 | Outpatient (CLI) | payer MEDICARE ==
[2018-10-07 09:10] VITALS: BP 111/57
--- NOTE | 2019-04-11 13:34 | PAIN ---
DATE OF SERVICE: 04/11/2019 PROGRESS NOTE FOR PAIN CLINIC DIAGNOSES: Lumbar radiculopathy with lumbar degenerative disk disease, lumbar spinal stenosis and post-lumbar laminectomy syndrome. HISTORY OF PRESENT ILLNESS: The patient is a 63-year-old female who returns for followup status post lumbar epidural steroid injection x 2. The patient reports about 70% improvement initially but now only about 25% improvement after the last injection. The patient reports still pain across the low back into the bilateral lower extremities, mostly in the posterior gluteus, posterior thighs and into the mid back as well at times. The patient reports rate as an 8 on a scale of 10 at its worst over the past week, 6 on average, 6 at its least and is a 6 today. The patient reports it is a sharp, shooting at times, tingling, burning, on and off in intensity, worse with walking, standing, changing positions, better with sitting or lying down, does not awaken her from sleep very often. She is the worst when she is on her feet, but better with sitting or lying down. The patient reports initially she was increasing her distance walking, doing household activities with greater ease and comfort, now it is back where it is more painful. The patient reports no new motor or sensory deficits and no new bowel or bladder incontinence or other complaints. PHYSICAL EXAMINATION: VITAL SIGNS: The patient's blood pressure is 132/76, pulse is 101, respirations 18 and temperature 98.2 degrees Fahrenheit. Height is 5 feet 6.5 inches and weight is 244 pounds. GENERAL: The patient is awake, alert, oriented, appropriate and very pleasant demeanor. HEENT: Head shows normocephalic and atraumatic. Extraocular movements are intact and symmetrical. Oral cavity, mucous membranes are moist and pink. Dentition is intact. NECK: Shows anterior throat supple without palpable lymphadenopathy noted. Swallow reflex symmetrical. CHEST: Shows normal with inspection. Breath sounds are clear to auscultation bilaterally.. HEART: Shows S1 and S2 clear. No murmurs auscultated. ABDOMEN: Soft, obese, nontender and nondistended. No palpable organomegaly is noted. No rebound or guarding demonstrated. BACK: Shows spine grossly in the midline. Normal appearing thoracic kyphosis and some minor flattening of lumbar lordotic curvature with well-healed surgical scar noted. Lumbar paraspinous muscle shows symmetrical on inspection, with palpation shows some moderate tenderness throughout the upper, middle and lower distribution of the paraspinous muscles bilaterally. No trigger points, no radiation of pain. The patient shows good rotational motion both laterally as well as extension and flexion without significant difficulty. EXTREMITIES: Lower extremities show deep tendon reflexes 1+ in the patellar and tendo-calcaneus tendons. Motor exam is strong with 5/5 dorsiflexion, extension, quadriceps and hamstring flexion and symmetrical. Peripheral pulses are 1+ posterior tibia. No peripheral edema is noted. Options were discussed with the patient. The patient's old chart was reviewed as well as her current medication regimen updated. Current review of systems updated today as well. We will proceed with a third in the series of lumbar epidural steroid injection today with fluoroscopic guidance. Risks were again discussed including, but not limited to bleeding, infection, possibility of epidural hematoma, subsequent neurologic compromise, dural puncture, headaches, spinal cord and/or nerve damage, side effects of steroid medication and poor results regarding pain control. The patient understands and wished to proceed. The patient will return to the clinic in approximately 2 weeks for followup, was counseled as to return appointment, activity level and side effects to be aware of. DIAGNOSES: Lumbar radiculopathy with lumbar degenerative disk disease and lumbar spinal stenosis and post-lumbar laminectomy syndrome. PROCEDURE: Lumbar epidural steroid injection, translaminar approach, L5-S1 level using C-arm fluoroscopic guidance under sterile prep and drape using local anesthetic. MEDICATION INJECTED: A total of 120 mg Depo-Medrol plus 10 mL of preservative-free normal saline and 2 mL of contrast. CONDITION AT DISCHARGE: Stable. The patient tolerated the procedure well and had no complications. YU RODRIGUEZ MD DR: JOSEFINA/jason JOB#: [id number] / [id number]
== END ==
LOC: PNCL 11:59
PROVIDERS: ATTEND Anesthesiology
DX: M51.16 Intervertebral disc disorders with radiculopathy, lumbar region (principal); M48.061 Spinal stenosis, lumbar region without neurogenic claudication; M96.1 Postlaminectomy syndrome, not elsewhere classified
CPT/HCPCS: 62323; J1030; J1040; Q9965

== ENCOUNTER → 2020-09-10 | Outpatient (CLI) | payer MEDICARE ==
[2018-10-07 09:10] VITALS: BP 111/57
[~2020-09-10] MED LIST changes: -MELA3TAB2 PO; +MELA3TAB4 PO; -OMEP20CA10 PO; +OMEP20CA16 PO; +OMEP40CA45 PO; -OMEP40CA5 PO
--- NOTE | 2020-09-10 10:56 | PDOC ---
Progress Note - Pain Clinic Date of Service: DOS: DATE: 09/10/20 TIME: 10:52 Diagnosis: Dx: Lumbar radiculopathy with lumbar spinal stenosis lumbar degenerative disc disease lumbar postlaminectomy syndrome Bilateral knee joint pain with osteoarthritis History or Present Illness: HPI: 65-year-old female returns follow-up status post lumbar epidural steroid injections x3 last seen April 11, 2019. Patient reports she did very well with the injections with about 80 to 90% improvement now still about 50% improved overall but the pain returned over the past year and a half especially the past few months with walking standing changing positions pain low back radiating into the mid upper back as well. And intact between the shoulder blades. Patient reports is worse with walking standing changing positions better with sitting or laying down generally not awaken her from sleep at night is better with sitting as well. Patient rates her pain is a 10 on scale 10 is worse in the past week 10 on average and a 9 is least and is a 9 today patient describes pain as aching and sharp in the low back burning pain in the mid upper back and becoming more constant with walking standing changing positions patient reports some pain in the lower extremities mostly the posterior gluteus and thighs bilaterally essentially right equal to left. Patient reports no new motor or sensory deficits no new bowel or bladder incontinence or other complaints. Patient has been off her Plavix now for 7 days. Physical Exam: VS: Blood pressure is 160/110 pulse 105 respirations 18 temperature 90.0 F height is 5 feet 6 inches weight is 242 pounds PE: PHYSICAL EXAMINATION: GENERAL: The patient is awake, alert, oriented, appropriate, very pleasant demeanor HEENT: Shows normocephalic, atraumatic. Extraocular movements are intact and symmetrical. Oral cavity: Mucous membranes moist and pink. NECK: Shows anterior throat supple without palpable lymphadenopathy noted. Swallow reflex symmetrical. CHEST: Shows normal on inspection. Breath sounds are clear bilaterally, distant but no rales rhonchi or wheezes auscultated bilaterally. HEART: Shows S1, S2 clear. No murmurs auscultated. ABDOMEN: Soft, nontender, nondistended, obese. No palpable organomegaly is noted. No rebound or guarding demonstrated. BACK: Shows spine grossly in the midline. Normal-appearing cervical lordotic curvature. There is slightly increased thoracic kyphosis, some minor flattening of the lumbar lordotic curvature. Well-healed surgical scar is noted in the midline. Lumbar paraspinous muscles show symmetrical on inspection, on palpation shows some moderate tenderness diffusely throughout the upper, middle and lower distribution of the paraspinous muscles bilaterally and also into the lower thoracic paraspinous musculature, firm and tender, but without specific trigger points, without radiation of pain. The patient has good rotational motion of the lumbar spine, both laterally as well as extension and flexion without significant difficulty. No tenderness over the spinous processes, sacrum or sacroiliac regions. EXTREMITIES: Lower extremities show deep tendon reflexes 1+ in the patellar and tendo calcaneus tendons. Motor exam is 5 on a scale of 5 with right dorsiflexion, extension, quadriceps and hamstring flexion and 5/5 on the left. Peripheral pulses are 1+ posterior tibial. No peripheral edema is noted bilaterally. Lower extremities are warm and dry to touch, equal in color and appearance. SKIN: Shows warm and dry, good turgor. No edema. No sores, rashes or bruising throughout. Procedure: Procedure: Options were discussed with the patient. Patient chart was reviewed as her current medication regimen updated current review of systems updated today as well. We will proceed with a lumbar epidural steroid injection today as the first in the series with fluoroscopic guidance. Risks were discussed including but not limited to: Bleeding, infection, possibility of epidural hematoma and subsequent neurological compromise, dural puncture, headaches, spinal cord and/or nerve damage, side effects of steroid medication, and poor results rega rding pain control. Patient understands wished to proceed. Patient will return to clinic in approximate 2 weeks for follow-up was counseled as to return appointment activity level and side effects to be aware of. Medication Injected: Med Injected: Procedure is lumbar epidural steroid injection under local anesthetic using sterile prep and drape at the L5-S1 level using C-arm fluoroscopic guidance in both AP and lateral views medications injected is 120 mg Depo-Medrol + 10 mL preservative-free normal saline and 2 mL contrast- condition at discharge is stable patient tolerated procedure well had no complications. Condition at Discharge: Condition at Discharge: Condition at discharge is stable, patient tolerated procedure well had no complications. Patient will restart Plavix September 11, 2020. YU RODRIGUEZ MD Sep 10, 2020 10:56
== END | disposition home or self-care (01) ==
LOC: PNCL 10:03
PROVIDERS: ATTEND Anesthesiology
DX: M51.16 Intervertebral disc disorders with radiculopathy, lumbar region (principal); M48.061 Spinal stenosis, lumbar region without neurogenic claudication; M96.1 Postlaminectomy syndrome, not elsewhere classified; M17.0 Bilateral primary osteoarthritis of knee; I25.10 Atherosclerotic heart disease of native coronary artery without angina pectoris; I10 Essential (primary) hypertension; E78.00 Pure hypercholesterolemia, unspecified; J44.9 Chronic obstructive pulmonary disease, unspecified; M19.90 Unspecified osteoarthritis, unspecified site; F41.9 Anxiety disorder, unspecified; E03.9 Hypothyroidism, unspecified; F32.9 Major depressive disorder, single episode, unspecified; Z90.710 Acquired absence of both cervix and uterus; Z98.890 Other specified postprocedural states; Z79.899 Other long term (current) drug therapy; Z87.891 Personal history of nicotine dependence; Z88.8 Allergy status to other drugs, medicaments and biological substances
CPT/HCPCS: 62323; J1030; J1040; Q9965

== ENCOUNTER → 2020-10-24 | Outpatient (CLI) | payer MEDICARE ==
[2018-10-07 09:10] VITALS: BP 111/57
--- NOTE | 2020-10-24 10:45 | PDOC ---
Progress Note - Pain Clinic Date of Service: DOS: DATE: 10/24/20 TIME: 10:41 Diagnosis: Dx: Lumbar radiculopathy with lumbar degenerative disc disease lumbar spinal stenosis and lumbar postlaminectomy syndrome Bilateral knee joint pain with osteoarthritis History or Present Illness: HPI: 65-year-old female returns follow-up status post lumbar epidural steroid injection x1. Patient reports about 50% improvement after the first injection the pain in the low back and the left greater than right lower extremity. Patient ports she fell about 3 weeks ago when she was moving some large heavy bags of dog food out of her truck and landed onto her right side with significant pain increasing in the low back and the bilateral lower extremities. Patient reports prior to that she was doing much better with distance walking doing household activities travel with greater ease and comfort sleeping better at night still sleeping fairly well but is waking her from sleep but once every 6-7 hours. Patient reports no new motor or sensory deficits no new bowel or bladder incontinence but still significant pain in the low back and the bilateral lower extremities worse on the left than the right described as aching and dull sharp sometimes tight shooting low back into the left lower extremity being and shooting becoming more severe more constant with time. She rates her pain a 10 on scale 10 is worse with past week 8 on average 5 its least is an 8 today. Physical Exam: VS: Blood pressures 138/89 pulse 105 respirations 18 temperature 98.6 F height is 5 feet 6 inches weight is 256 pounds PE: PHYSICAL EXAMINATION: GENERAL: The patient is awake, alert, oriented, appropriate, very pleasant demeanor HEENT: Shows normocephalic, atraumatic. Extraocular movements are intact and symmetrical. NECK: Shows anterior throat supple without palpable lymphadenopathy noted. Swallow reflex symmetrical. CHEST: Shows normal on inspection. Breath sounds are clear bilaterally, distant but no rales or rhonchi. HEART: Shows S1, S2 clear. No murmurs auscultated. ABDOMEN: Soft, nontender, nondistended, obese. No palpable organomegaly is noted. No rebound or guarding demonstrated. BACK: Shows spine grossly in the midline. Normal-appearing cervical lordotic curvature. There is increased thoracic kyphosis, some flattening of the lumbar lordotic curvature. Lumbar paraspinous muscles show symmetrical on inspection, on palpation shows some moderate tenderness diffusely throughout the upper, middle and lower distribution of the paraspinous muscles bilaterally without specific trigger points, without radiation of pain. The patient has good ro tational motion of the lumbar spine, both laterally as well as extension and flexion without significant difficulty. EXTREMITIES: Lower extremities show deep tendon reflexes 1+ in the patellar and tendo calcaneus tendons. Motor exam is 5 on a scale of 5 with right dorsiflexion, extension, quadriceps and hamstring flexion and 5/5 on the left. Peripheral pulses are 1+ posterior tibial. No peripheral edema is noted bilaterally. Lower extremities are warm and dry to touch, equal in color and appearance. SKIN: Shows warm and dry, good turgor. No edema. No sores, rashes or bruising throughout. Procedure: Procedure: Options were discussed with the patient. Patient's old chart was reviewed as her current medication regimen updated current review of systems updated today as well. We will proceed with a second in a series lumbar epidural steroid injection today with fluoroscopic guidance. Risks were discussed including but not limited to: Bleeding, infection, possibility of epidural hematoma and subsequent neurological compromise, dural puncture, headaches, spinal cord and/or nerve damage, side effects of steroid medication, and poor results regarding pain control. Patient understands wished to proceed. Patient will return to the clinic in approximate 2 weeks for follow-up, was counseled as to return appointment activity level and side effects to be aware of. Medication Injected: Med Injected: Procedure is lumbar epidural steroid injection under local anesthetic using sterile prep and drape at the L5-S1 level using C-arm fluoroscopic guidance in both AP and lateral views medications injected is 120 mg Depo-Medrol + 10 mL preservative-free normal saline and 2 mL contrast- condition at discharge is stable patient tolerated procedure well had no complications. Condition at Discharge: Condition at Discharge: Condition at discharge stable, patient tolerated the procedure well, and had no complications. YU RODRIGUEZ MD Oct 24, 2020 10:45
== END | disposition home or self-care (01) ==
LOC: PNCL 09:51
PROVIDERS: ATTEND Anesthesiology
DX: M51.16 Intervertebral disc disorders with radiculopathy, lumbar region (principal); M48.061 Spinal stenosis, lumbar region without neurogenic claudication; M96.1 Postlaminectomy syndrome, not elsewhere classified; M17.0 Bilateral primary osteoarthritis of knee; I25.10 Atherosclerotic heart disease of native coronary artery without angina pectoris; E78.00 Pure hypercholesterolemia, unspecified; I10 Essential (primary) hypertension; J44.9 Chronic obstructive pulmonary disease, unspecified; M19.90 Unspecified osteoarthritis, unspecified site; E03.9 Hypothyroidism, unspecified; F41.9 Anxiety disorder, unspecified; F17.210 Nicotine dependence, cigarettes, uncomplicated; Z86.73 Personal history of transient ischemic attack (TIA), and cerebral infarction without residual deficits; Z79.899 Other long term (current) drug therapy; Z98.890 Other specified postprocedural states; Z90.710 Acquired absence of both cervix and uterus; Z72.89 Other problems related to lifestyle; Z88.1 Allergy status to other antibiotic agents; Z88.8 Allergy status to other drugs, medicaments and biological substances
CPT/HCPCS: 62323; J1030; J1040; Q9965

== ENCOUNTER → 2021-01-17 | Outpatient (CLI) | payer MEDICARE ==
[2018-10-07 09:10] VITALS: BP 111/57
--- NOTE | 2021-01-17 11:35 | PDOC ---
Progress Note - Pain Clinic Date of Service: DOS: DATE: 01/17/21 TIME: 11:31 Diagnosis: Dx: Lumbar radiculopathy with lumbar degenerative disease lumbar spinal stenosis and post lumbar laminectomy syndrome Bilateral knee joint pain with osteoarthritis History or Present Illness: HPI: 65-year-old female returns for follow-up status post previous lumbar epidural steroid injection most recently seen October 24, 2020 patient reports did very well about 50 to 75% improvement in the pain that is returning now in the low back mostly the low back and also in the bilateral lower extremities, posterior gluteus, and lower extremities bilaterally right equal to left. Patient reports her pain is a 10 on scale 10 is worst average and a 7 at its least is a 10 today patient ports shooting aching sharp burning stabbing the back unbearable at times worse with walking standing better with sitting or laying down generally does not awaken her from sleep at night patient reports initially she was doing much better after last injection with walking doing household activities and travel with greater ease and comfort now the pain is returning. Patient reports no new motor or sensory deficits no new bowel or bladder incontinence no complaints. Physical Exam: VS: Blood pressure is 132/59 pulse 94 respirations are 20 temperature 98.1 F weight 252 pounds PE: PHYSICAL EXAMINATION: GENERAL: The patient is awake, alert, oriented, appropriate, very pleasant demeanor HEENT: Shows normocephalic, atraumatic. Extraocular movements are intact and symmetrical. Oral cavity: Mucous membranes moist and pink. Dentition is intact. NECK: Shows anterior throat supple without palpable lymphadenopathy noted. Swallow reflex symmetrical. CHEST: Shows normal on inspection. Breath sounds are clear bilaterally, no rales or rhonchi bilaterally. HEART: Shows S1, S2 clear. No murmurs auscultated. ABDOMEN: Soft, nontender, nondistended, obese. No palpable organomegaly is noted. No rebound or guarding demonstrated. BACK: Shows spine grossly in the midline. Normal-appearing cervical lordotic curvature. There is slightly increased thoracic kyphosis, some minor flattening of the lumbar lordotic curvature. Patient has well-healed surgical scar in the midline. Lumbar paraspinous muscles show symmetrical on inspection, on palpation shows some moderate tenderness diffusely throughout the upper, middle and lower distribution of the paraspinous muscles without specific trigger points, without radiation of pain. The patient has good rotational motion of the lumbar spine, both laterally as well as extension and flexion without significant difficulty. EXTREMITIES: Lower extremities show deep tendon reflexes 1+ in the patellar and tendo calcaneus tendons. Motor exam is 5 on a scale of 5 with right dorsiflexion, extension, quadriceps and hamstring flexion and 5/5 on the left. Peripheral pulses are 1+ posterior tibial. No peripheral edema is noted bilaterally. Lower extremities are warm and dry to touch, equal in color and appearance. SKIN: Shows warm and dry, good turgor. No edema. No sores, rashes or bruising throughout. Procedure: Procedure: Options discussed with the patient. Patient chart reviews her current medication regimen updated current review of systems updated today as well. We will proceed with a third in the series lumbar epidural steroid injection stable fluoroscopic guidance. Risks were discussed including but not limited to: Bleeding, infection, possibility of epidural hematoma and subsequent neurological compromise, dural puncture, headaches, spinal cord and/or nerve damage, side effects of steroid medication, and poor results regarding pain control. Patient understands and wished to proceed. Patient will return to the clinic in approximate 2 weeks for follow-up was counseled as return appointment activity level and side effects to be aware of. Medication Injected: Med Injected: Procedure is lumbar epidural steroid injection under local anesthetic using sterile prep and drape at the L5-S1 level using C-arm fluoroscopic guidance in both AP and lateral views medications injected is 120 mg Depo-Medrol + 10 mL preservative-free normal saline and 2 mL contrast- condition at discharge is stable patient tolerated procedure well had no complications. Condition at Discharge: Condition at Discharge: Condition at discharge stable, patient alert the procedure well and had no complications. YU RODRIGUEZ MD Jan 17, 2021 11:35
--- NOTE | 2021-01-17 11:36 | PDOC4 ---
PROCEDURE Procedure Patient was consented for lumbar epidural steroid injection. Risks were dis cussed including but not limited to: Bleeding, infection, possibility of epidural hematoma and subsequent neurological compromise, dural puncture, headaches, spinal cord and/or nerve damage, side effects of steroid medication, and poor results regarding pain control. Patient understands and wished to proceed. Procedure is lumbar epidural steroid injection under local anesthetic using sterile prep and drape at the L5-S1 level using C-arm fluoroscopic guidance in both AP and lateral views medications injected is 120 mg Depo-Medrol + 10 mL preservative-free normal saline and 2 mL contrast- condition at discharge is stable patient tolerated procedure well had no complications. YU RODRIGUEZ MD Jan 17, 2021 11:36
== END | disposition home or self-care (01) ==
LOC: PNCL 09:54
PROVIDERS: ATTEND Anesthesiology
DX: M51.16 Intervertebral disc disorders with radiculopathy, lumbar region (principal); M48.061 Spinal stenosis, lumbar region without neurogenic claudication; M96.1 Postlaminectomy syndrome, not elsewhere classified; M17.0 Bilateral primary osteoarthritis of knee; I25.10 Atherosclerotic heart disease of native coronary artery without angina pectoris; I10 Essential (primary) hypertension; E78.00 Pure hypercholesterolemia, unspecified; J44.9 Chronic obstructive pulmonary disease, unspecified; M19.90 Unspecified osteoarthritis, unspecified site; E03.9 Hypothyroidism, unspecified; F41.9 Anxiety disorder, unspecified; F17.210 Nicotine dependence, cigarettes, uncomplicated; Z90.710 Acquired absence of both cervix and uterus; Z98.890 Other specified postprocedural states; Z79.899 Other long term (current) drug therapy; Z72.89 Other problems related to lifestyle; Z88.8 Allergy status to other drugs, medicaments and biological substances
CPT/HCPCS: 62323; J1030; J1040; Q9965